=== PATIENT | female | born 1980 | race Hispanic/Latino ===

== ENCOUNTER 2021-08-11 08:40 | Day surgery (SDC) | payer OTHER ==
[~2021-08-11 08:40] MED LIST: ACETAMINOPHEN 500 MG TAB PO SCH; CELECOXIB 200 MG CAP PO NR; GABAPENTIN 300 MG CAP PO NR; LACTATED RINGERS 1,000 ML IV SCH; MIDAZOLAM 2 MG/2 ML INJ IV NR; SCOPOLAMINE TRANSDERMAL PATCH 72 HR TD NR
--- NOTE | 2021-08-11 10:06 | Anesthesia Consultation ---
Anesthesia Consult and Med Hx Date of service: 08/11/21 - Airway Anesthetic Teeth Evaluation: Good ROM Head & Neck: Adequate Mental/Hyoid Distance: Adequate Mallampati Class: Class III Intubation Access Assessment: Possibly Difficult - Pre-Operative Health Status ASA Pre-Surgery Classification: ASA2 Proposed Anesthetic Plan: General - Pulmonary Hx Smoking: Yes (quit 2 yrs) Hx Respiratory Symptoms: No - Cardiovascular System Hx Hypertension: No - Central Nervous System CVA: No - Endocrine Hx Renal Disease: No Hx Liver Disease: No Hx Insulin Dependent Diabetes: No Hx Non-Insulin Dependent Diabetes: No (metformin for ovarian cyst) Hx Thyroid Disease: No - Other Systems Hx Obesity: Yes (BMI 35) - Additional Comments Anesthesia Medical History Comments: No hx anesthetic complications.
--- NOTE | 2021-08-11 10:06 | Anesthesia Day of Surgery ---
Anesthesia Day of Surgery - Day of Surgery Patient Examined: Yes Patient H&P Reviewed: Yes Patient is NPO: Yes
[2021-08-11] MEDS ORDERED: HYDROmorphone 1 MG/1 ML INJ IV PRN (10:30)
[2021-08-11] MEDS ORDERED: ONDANSETRON 4 MG/2 ML INJ IV PRN (10:30)
[2021-08-11 10:32] LABS: Hematocrit 37.7 % (30.3-42.9); Hemoglobin 12.8 gm/dl (10.1-14.3); Mean Corpuscular HGB Conc 34 % (30-34); Mean Corpuscular Volume 91 fl (79-97); Platelet Count 247 K/mm3 (140-440); Red Blood Count 4.15 M/mm3 (3.65-5.03); Red Cell Distribution Width 13.6 % (13.2-15.2)
[2021-08-11 10:50] LABS: Blood Urea Nitrogen 10 mg/dL (7-17); Calcium 9.3 mg/dL (8.4-10.2); Hemolysis Index 2
[2021-08-11 10:58] LABS: BUN/Creatinine Ratio 17
[2021-08-11] MEDS ORDERED: oxyCODONE /ACETAMINOPHEN 5-325MG TAB PO PRN (11:00)
[2021-08-11] MEDS ORDERED: fentaNYL 100 MCG/2 ML INJ ONE ×2 (11:33→12:34)
[2021-08-11] MEDS ORDERED: propofoL 200 MG/20 ML VIAL IV ONE (11:33)
[2021-08-11] MEDS ORDERED: LIDOCAINE PF 100 MG/5 ML (CARDIAC SYRINGE) IV ONE (11:33)
[2021-08-11] MEDS ORDERED: ROCURONIUM 50 MG/5 ML INJ IV ONE (11:33)
[2021-08-11] MEDS ORDERED: BUPIVACAINE/PF (0.5%) 5 MG/1 ML 30 ML VIAL INFILTRATI ONE ×2 (11:36→12:35)
--- NOTE | 2021-08-11 11:43 | History and Physical Report ---
History of Present Illness Date of examination: 08/11/21 Date of admission: 08/11/21 Chief complaint: pelvic pain, endometrial polyps History of present illness: 40 yo [id number] HX OF D&C. ALSO, HX OF LAPAROSCOPY HX OF PCOS, SEIZURES AND OVARIAN CYST.HX OF CHRONIC PELVIC PAIN. U/S C/W RIGHT OVARIAN CYST AND LEFT HYDROSALPINX.PLAN D&C, DIAGNOSTIC HYSTEROSCOPY, POLYPECTOMY AND LAPAROSCOPY. Past History Past Surgical History: D&C, other (LAPAROSCOPY.) [employer] History: other (PCOS, OVARIAN CYST, ENDOMETRIAL POLYPS.) Family/Genetic History: none Medications and Allergies Allergies Allergy/AdvReac Type Severity Reaction Status Date / Time Unable to Assess Allergy Unverified 08/09/21 14:30 Home Medications Medication Instructions Recorded Confirmed Last Taken Type Effexor 25 mg PO DAILY 08/11/21 08/11/21 08/10/21 09:00 History Effexor XR 25 mg PO DAILY 08/11/21 08/11/21 08/10/21 09:00 History metFORMIN 1,000 mg PO BID 08/11/21 08/11/21 08/10/21 20:00 History Active Meds: Active Medications Acetaminophen (Acetaminophen 500 Mg Tab) 1,000 mg PO PREOP TARAH Stop: 08/11/21 23:00 Last Admin: 08/11/21 09:45 Dose: 1,000 mg Documented by: Celecoxib (Celecoxib 200 Mg Cap) 200 mg PO PREOP NR Stop: 08/11/21 23:00 Last Admin: 08/11/21 09:45 Dose: 200 mg Documented by: Gabapentin (Gabapentin 300 Mg Cap) 300 mg PO PREOP NR Stop: 08/11/21 23:00 Last Admin: 08/11/21 09:45 Dose: 300 mg Documented by: Hydromorphone HCl (Hydromorphone 1 Mg/1 Ml Inj) 0.5 mg IV Q10MIN PRN PRN Reason: Pain , Severe (7-10) Stop: 08/11/21 18:00 Lactated Ringer's (Lactated Ringers) 1,000 mls @ 100 mls/hr IV DIRECT TARAH Stop: 08/11/21 23:59 Last Admin: 08/11/21 10:15 Dose: 100 mls/hr Documented by: Midazolam HCl (Midazolam 2 Mg/2 Ml Inj) 2 mg IV PREOP NR Stop: 08/11/21 23:00 Ondansetron HCl (Ondansetron 4 Mg/2 Ml Inj) 4 mg IV ONCE PRN PRN Reason: Nausea And Vomiting Stop: 08/11/21 17:00 Oxycodone/Acetaminophen (Oxycodone /Acetaminophen 5-325mg Tab) 1 tab PO ONCE PRN PRN Reason: Pain, Moderate (4-6) Stop: 08/11/21 12:00 Scopolamine (Scopolamine Transdermal Patch 72 Hr) 1 each TD PREOP NR Stop: 08/11/21 23:00 Last Admin: 08/11/21 09:50 Dose: 1 each Documented by: Review of Systems All systems: negative - Vital Signs Vital signs: Vital Signs Temp Pulse Resp BP Pulse Ox 97.6 F 67 18 130/88 97 08/11/21 09:07 08/11/21 09:07 08/11/21 09:07 08/11/21 09:07 08/11/21 09:07 Temp Pulse Resp BP Pulse Ox 97.6 F 67 18 130/88 97 08/11/21 09:15 08/11/21 09:15 08/11/21 10:45 08/11/21 09:15 08/11/21 09:15 - Physical Exam Breasts: Cardiovascular: Regular rate, Normal S1, Normal S2 Abdomen: Positive: normal appearance, soft, normal bowel sounds. Negative: distention, tenderness Vulva: both: normal Vagina: Positive: normal moisture. Negative: discharge Cervix: Negative: lesion, discharge Uterus: Positive: normal size, normal contour Adnexa: right: normal, left: tenderness (LEFT ADNEXAL MASS) Anus/Rectum: Positive: normal perianal skin, heme negative. Negative: rectal mass, hemorrhoids Extremities: Deep Tendon Reflex Grade: Normal +2 Results Result Diagrams: 08/11/21 10:05 08/11/21 10:05 All other labs normal. Assessment and Plan ENDOMETRIAL POLYPS, LEFT HYDROSALPINX.PLAN DIAG HYSTEROSCOPY WITH POLYPECTOMY AND DIAG LAP.
[2021-08-11] MEDS ORDERED: dexAMETHasone 20 MG/5 ML VIAL ONE (12:03)
[2021-08-11] MEDS ORDERED: ONDANSETRON 4 MG/2 ML INJ ONE (12:03)
[2021-08-11] MEDS ORDERED: NEOSTIGMINE 10MG/10 ML INJ MDV ONE (12:25)
[2021-08-11] MEDS ORDERED: GLYCOPYRROLATE 0.4 MG/2 ML INJ ONE ×2 (12:26)
[2021-08-11] MEDS ORDERED: SODIUM CHLORIDE 0.9% IRRIG SOLN 2000 ML IR ONE (12:35)
[2021-08-11] MEDS ORDERED: KETOROLAC 30 MG/1 ML INJ ONE (12:56)
--- NOTE | 2021-08-11 13:25 | Procedure Note ---
Date of procedure: 08/11/21 Pre-op diagnosis: pelvic pain, left salpinx,left ovarian cyst. Post-op diagnosis: same Procedure: Time of surgery was 45 minutes. Preoperative diagnosis chronic pelvic pain, left hydrosalpinx, left ovarian cyst.endometrial polyp Postoperative diagnosis same. Findings left hydrosalpinx left ovarian cyst approximately 4 cm in size. Endometrial polyp. Procedure was a diagnostic hysteroscopy with polypectomy of endometrial polyp on the left wall of the uterus. Diagnostic laparoscopy with drainage of a left ovarian cyst and left salpingectomy of a hydrosalpinx on the left fallopian tube. D&C. Complications none Estimated blood loss less than 100 cc. Procedure patient was taken operatory placed in supine position given general anesthetic with intubation and placed in the [facility] stirps in preparation for hysteroscopy hysteroscopy was performed using normal saline as insufflating medium endometrial cavity was inspected patient's body 1 endometrial polyp on the endometrial wall which was removed with polyp forceps. We then did a D&C of the endometrial cavity with a minimal amount of tissue and this was sent for pathological inspection. Attention was directed towards laparoscopy portion procedure versus the skin just below the like was was injected with Marcaine we then made a small stab incision and inserted Veress needle into the peritoneal cavity 2 L of carbon dioxide were used to obtain pneumoperitoneum the varies needle was removed the 10 mm trocar was easily inserted to the peritoneal cavity under direct visualization. The above findings was noted patient was found to have a anteflexed uterus and had a left hydrosalpinx and a small cyst of serosanguineous fluid on the left ovary. We did a second puncture under direct visualization with a 5 mm trocar in the midline above the pubic symphysis. We used a blunt probe to manipulate the fallopian tube on the left and on the right right fallopian tube was normal right ovary is normal the right tube is normal. We used the needle puncture with syringe to remove the fluid from the left ovary and this was sent for pathological inspection. We also used the 5 mm LigaSure through a another 5 mm site on the left lower quadrant under direct visualization to ligate the left mesosalpinx and [place] salpinx was disconnected from the adnexa. We then placed a 5 mm trocar through one of our ports and the Endopouch was placed through our visual port. And used to get the hydropelvis salpinx for taken out of the abdominal cavity and once we removed from abdominal cavity through separate pathological inspection there was no bleeding from the cut portion of the hydrosalpinx or from the ovary. See no further procedures were indicated all instruments were removed from the vagina all instruments removed from abdominal cavity except the sheet gas landscape through the sheath this is within repaired with running subcuticular 4-0 Vicryl and drape with Dermabond patient tolerated procedure well. And was returned to recovery room in stable condition. Anesthesia: GETA Surgeon: SAMY CHAVIRA Estimated blood loss: 50-100ml Pathology: list Specimen disposition: to lab (fallopian tube from left, cyst fluid left ovary.) Condition: stable Disposition: same day
[2021-08-11] MEDS ORDERED: HYDROcodone/ACETAMINOPHEN 5-325 MG TAB ONE (13:27)
--- NOTE | 2021-08-11 16:02 | Post Anesthesia Evaluation ---
- Post Anesthesia Evaluation Patient Participated: Yes Airway Patent: Yes Stable Respiratory Function: Yes Nausea/Vomiting: No Temp > 96.8F: Yes Pain Manageable: Yes Adequeate Hydration: Yes Anesthesia Complications: No
[2021-08-11 19:44] VITALS: BP 137/84
== END 2021-08-11 08:41 | disposition home or self-care (01) ==
LOC: OR 08:40
DX: R10.2 Pelvic and perineal pain (principal); N83.202 Unspecified ovarian cyst, left side; E66.9 Obesity, unspecified; Z79.899 Other long term (current) drug therapy; Z98.890 Other specified postprocedural states; Z68.35 Body mass index [BMI] 35.0-35.9, adult
CPT/HCPCS: 36415; 58558; 58670; 80048; 81025; 85027; 87075; 87116; 88302; 88305; A4217; J1100; J1170; J1885; J2001; J2250; J2405; J2704; J2710; J3010; J7120